=== PATIENT | male | born 1950 | race Caucasian/White ===

== ENCOUNTER → 2020-11-14 09:12 | Outpatient (BNVA) | payer OTHER, MEDICARE, SELFPAY | PROVIDERS: PCP Internal Medicine Endocrinology, Diabetes & Metabolism; Referring Provider Internal Medicine Endocrinology, Diabetes & Metabolism; Visit Provider Internal Medicine | DX: Z13.89 Encounter for screening for other disorder (principal) ==

== ENCOUNTER → 2021-02-11 09:18 | Outpatient (BNVA) | payer MEDICARE, OTHER, SELFPAY | PROVIDERS: PCP Internal Medicine Endocrinology, Diabetes & Metabolism; Visit Provider Internal Medicine | DX: Z13.89 Encounter for screening for other disorder (principal) | CPT/HCPCS: Q3014 ==

== ENCOUNTER 2021-02-28 09:32 | Outpatient (REF) | payer MEDICARE, SELFPAY ==
[2021-02-28 10:23] LABS: Hematocrit 32.9 % (42-52); Hemoglobin 11.4 g/dl (14.0-18.0)
[2021-02-28 11:21] LABS: Prostate Specific Antigen 0.79 ng/mL (<0.05-4.0); Vitamin D 25-OH Total 37.5 ng/mL (>30)
[2021-03-01 07:51] LABS: Follicle Stimulating Hormone 10.6 mIU/mL (1.6-8.0); Lutenizing Hormone 9.5 mIU/mL (1.6-15.2)
[2021-03-04 11:36] LABS: Testosterone, Free 25.2 pg/mL (35.0-155.0); Testosterone, Total 252 ng/dL (250-1100)
== END 2021-02-28 09:33 | disposition home or self-care (01) ==
LOC: HO.LAB 09:32
PROVIDERS: PCP Internal Medicine; Visit Provider Internal Medicine
DX: E23.0 Hypopituitarism (principal); E55.9 Vitamin D deficiency, unspecified; Z12.5 Encounter for screening for malignant neoplasm of prostate
CPT/HCPCS: 36415; 82306; 83001; 83002; 84153; 84402; 84403; 85014; 85018

== ENCOUNTER → 2021-04-03 08:11 | Outpatient (BNVA) | payer OTHER, MEDICARE, SELFPAY | PROVIDERS: PCP Internal Medicine; Visit Provider Internal Medicine ==

== ENCOUNTER 2024-04-11 00:03 | Inpatient (IN) | payer MEDICARE, BC, SELFPAY ==
[2024-04-11] VITALS (14 sets, daily range): BP systolic 120–170; BP diastolic 68–100; PULSE 58–70; RESP 9–18; TEMP 36.6–37.1; O2SAT 93–99; BMI 28.5
--- NOTE | ~2024-04-11 | XR_ITS ---
EXAMINATION: XR CHEST CLINICAL INFORMATION: Shortness of breath. COMPARISON: None available. TECHNIQUE: Frontal view of the chest was obtained. FINDINGS: The lung volumes are low limiting evaluation. The cardiomediastinal silhouette is within normal limits. There appears to be atelectatic change or scarring at the lung bases. The lungs are otherwise clear. The bony structures and soft tissues are unremarkable. XR/XR chest 1V IMPRESSION: Low lung volumes limiting evaluation. Bibasilar atelectasis or scarring. No other significant abnormality seen.
--- NOTE | ~2024-04-11 | CT_ITS ---
EXAMINATION: CTA NECK WITH CONTRAST (STROKE) CTA BRAIN WITH CONTRAST (STROKE) CLINICAL INFORMATION: Suspect acute stroke. Assess for major vessel occlusion. Please call report. COMPARISON: None available. TECHNIQUE: CTA of the head and neck was performed in the axial plane from the mediastinum to the skull vertex using 70 mL Omnipaque 350 intravenous contrast. Additional reformatted multiplanar images including maximum intensity projection MIP images are generated on the CT workstation. This CT examination was performed using dose optimization techniques as appropriate, variously including the following: *Automated exposure control *Adjustment of mA and/or kV according to patient size (this includes techniques or standardized protocols for targeted exams where dose is matched to indication/reason for exam; i.e. extremities or head) *Use of iterative reconstruction technique DLP: 1585 mGy-cm FINDINGS: The degree of stenosis determined by criteria similar to NASCET. Brain: The lateral, third and fourth ventricles are normally outlined. The cortical sulci and basal cisterns are normally outlined as well. There is no acute territorial defect, hemorrhage or midline shift. The extra-axial spaces are unremarkable. Calvarium/scalp: Intact. Maxillofacial sinuses and mastoids: There is partial bilateral mastoid opacification. The maxillofacial sinuses are clear. Chest CTA: There is mild atherosclerotic plaque of the aortic arch. A three-vessel branching pattern from the aortic arch is noted. There is no significant stenosis of the aortic arch vessels. Neck CTA: The common carotid artery is patent. There is mild plaque at the right carotid bifurcation. There is no significant narrowing of the internal or external carotid arteries. The vertebral vertebral arteries are codominant and patent. There is cervical degenerative change as well as postoperative change. Brain CTA: The intracranial internal carotid arteries, anterior and middle cerebral arteries are patent. The distal vertebral arteries, basilar artery and branches and the left posterior cerebral arteries are patent. The right posterior cerebral artery is not seen some apparent right-sided collaterals. There is no evidence for aneurysm. CT/CT angio head neck stroke IMPRESSION: 1. No acute territorial infarct or hemorrhage. 2. No evidence of aneurysm or vascular malformation. 3. The right posterior cerebral artery is not seen with some right-sided collateralization. Correlation needed
--- NOTE | ~2024-04-11 | CT_ITS ---
EXAMINATION: CT HEAD WITHOUT CONTRAST (STROKE PROTOCOL) CLINICAL INFORMATION: Stroke protocol. Left-sided weakness. COMPARISON: None available. TECHNIQUE: Contiguous axial imaging was performed from the skull base to vertex without intravenous administration of contrast. This CT examination was performed using dose optimization techniques as appropriate, variously including the following: *Automated exposure control *Adjustment of mA and/or kV according to patient size (this includes techniques or standardized protocols for targeted exams where dose is matched to indication/reason for exam; i.e. extremities or head) *Use of iterative reconstruction technique DLP: 784 mGy-cm FINDINGS: The lateral, third and fourth ventricles are normally outlined. The cortical sulci and basal cisterns are normally outlined as well. There is no acute territorial defect, hemorrhage or midline shift. The extra-axial spaces are unremarkable. Calvarium/scalp: Intact. Maxillofacial sinuses and mastoids: There is partial bilateral mastoid opacification. CT/CT head for stroke IMPRESSION: No acute intracranial pathology. This critical result was discussed with Daniela Gatica at 12:22 AM hours on 03/12/2024. It was ascertained that the content and urgency of the report was understood at the time of direct communication.
--- NOTE | ~2024-04-11 | MR_ITS ---
EXAMINATION: MR BRAIN WITHOUT CONTRAST CLINICAL INFORMATION: Speech changes. Left-sided weakness. COMPARISON: CTA head and neck from 04/11/2024. TECHNIQUE: MRI of the brain was obtained using routine sequences without contrast. FINDINGS: No focal restricted diffusion is demonstrated to suggest acute or subacute cerebral ischemia. No evidence of acute or chronic hemorrhagic products on heme-sensitive imaging. Scattered periventricular and deep white matter T2 FLAIR hyperintensities consistent with mild underlying microangiopathy. Proportional prominence of the ventricles and sulcal spaces without evidence of obstructive hydrocephalus. No abnormal mass effect. No midline shift. Normal appearance of the pituitary gland. Normal positioning of the cerebellar tonsils. Normal arterial and venous vascular flow voids are present. Normal, homogeneous marrow signal. Mild mucosal thickening of the paranasal sinuses. Small bilateral mastoid effusions. MR/MR head/brain wo con IMPRESSION: 1. No acute intracranial abnormalities. 2. Mild underlying microangiopathy and generalized cerebral volume loss.
--- NOTE | 2024-04-11 00:10 | ECG_ITS ---
Test Reason : STROKE?? Blood Pressure : / mmHG Vent. Rate : 067 BPM Atrial Rate : 000 BPM P-R Int : 000 ms QRS Dur : 100 ms QT Int : 396 ms P-R-T Axes : 000 050 040 degrees QTc Int : 418 ms Accelerated Junctional rhythm Abnormal ECG No previous ECGs available Referred By: Daniela Gatica Electronically Signed By:Theron Castelan
--- NOTE | 2024-04-11 00:12 | ED.NEUROSD ---
HPI - Neuro Symptoms/Deficit General Chief Complaint: Stroke Stated Complaint: stroke Time Seen by Provider: 04/11/24 00:09 History of Present Illness HPI Narrative: Patient is a 73-year-old male with a history of DVT. History of hypertension. History of large prostate history of glaucoma. Currently is on Eliquis for the previous history of DVT/PE. Took his medication this morning. Presented today with having sudden onset of slight change in speech. Slight facial droop on the left side. There is no change in patient's speech content. Feels like his speech is slurred. Question left-sided weakness noted by EMS and family. May have gotten better on arrival. Patient from home. Time: 00:34 Last Observed Normal: 23:30 Timing confirmed by: spouse and other (EMS) Location: speech and left face Related Data Home Medications ?Medication ?Instructions ?Recorded ?Confirmed lisinopril 40 mg tablet 40 mg PO DAILY 11/14/20 04/03/21 metoprolol succinate 50 mg 50 mg PO DAILY 11/14/20 04/03/21 tablet,extended release 24 hr nystatin 100,000 unit/mL oral PO 11/14/20 04/03/21 suspension pantoprazole 20 mg tablet,delayed 20 mg PO DAILY 11/14/20 04/03/21 release tamsulosin 0.4 mg capsule 0.4 mg PO DAILY 11/14/20 04/03/21 timolol maleate 0.5 % eye drops 1 drp ophthalmic (eye) QAM 11/14/20 04/03/21 travoprost 0.004 % eye drops drp ophthalmic (eye) 11/14/20 04/03/21 apixaban 5 mg tablet 5 mg PO BID 04/03/21 04/03/21 fluoride (sodium) 1.1 % dental appl PO DIRECTED 04/03/21 04/03/21 cream pravastatin 20 mg tablet 20 mg PO DAILY 04/03/21 04/03/21 Allergies Allergy/AdvReac Type Severity Reaction Status Date / Time seasonal allergies Allergy Unknown Unknown Uncoded 04/11/24 00:43 Review of Systems Review of Systems: Patient family complaining of slight change in speech left facial weakness has a history of DVT on Eliquis. [facility] Past Medical History Attestation statement: The following information was validated with the patient. Medical History Vitamin D deficiency DVT (deep venous thrombosis) Hypogonadotropic hypogonadism Surgical History Hx of appendectomy Hx of right inguinal hernia repair Family History Family History Mother No problems noted. Father No problems noted. Social History Social History Alcohol intake: former Smoked in Last 30 Days: No Use of substances other than those prescribed or required for medical reasons: Yes Substance Use Type: Marijuana Substance Use Frequency: Occasionally Physical Exam Vital Signs: Vital Signs: Last Vital Signs Temp 97.9 F 04/11/24 00:41 Pulse 67 04/11/24 00:41 Resp 14 04/11/24 00:41 BP 155/86 H 04/11/24 00:41 Pulse Ox 93 04/11/24 00:41 O2 Del Method Room Air 04/11/24 00:41 BMI result Body Mass Index 28.5 Appearance: Alert. Oriented X3. No acute distress. Eyes: Pupils equal, round and reactive to light. ENT: Pharynx normal. Neck: Normal inspection. Neck supple. No lymph nodes noted. No crepitus CVS: Normal heart rate and rhythm. Pulses normal. Normal S1 and S2 Respiratory: No respiratory distress. Breath sounds normal. No Wheezing. No rales Abdomen: Soft and nontender. No rigidity. No distention. good BS x4 Skin: Skin warm and dry. Normal skin color. Normal skin turgor. Extremities: No lower extremity edema. Neurovascular intact to all extremities. No Lacerations. No Rash Neuro: Oriented X 3. No motor deficit. No sensory deficit. Moving all extermities. No slurred speech Medications Administered Discontinued Medications Generic Name Dose Route Start Last Admin Trade Name Freq PRN Reason Stop Dose Admin Iohexol 70 ml 04/11/24 00:36 04/11/24 00:37 Iohexol 350 Mg/Ml 100 Ml Infus..Btl IV 04/11/24 00:37 70 ml ONCE ONE Administration Medical Decision Making Medical Decision Making MDM Narrative: Patient sugar is normal no evidence for hypoglycemia. Patient presented today with having a slight change in speech question left facial weakness that has somewhat improved on arrival. My exam showed an NIH stroke scale is 0. Patient CT scan of the head was done immediately per stroke protocol. I reviewed the finding with the radiologist. It was grossly negative. I reviewed the CT scan shows no evidence of bleeding. No evidence of mass. Patient is not a candidate for tPA as he had a history of being on Eliquis. Been taking his medication. CTA of the head and neck was nevertheless done. Patient had no history of strokes in the past. Differential Diagnosis Differential Diagnoses: The differential diagnosis associated with the presentation includes Hypoglycemia, intracranial mass, CVA, TIA Admission/Observation Consideration of admission/observation: Escalation of care including admission/observation considered Consult Healthcare Provider Management of the patient was discussed with: Hospitalist (Will require admission) and Chief Jailer (Case discussed with radiologist) Lab Data MDM Lab Attestation statement: I reviewed the patient's lab results. 04/11/24 00:38 04/11/24 00:38 Labs: Lab Results 04/11/24 04/11/24 Range/Units 00:07 00:38 WBC 8.3 (4.8-10.8) X10*3/uL RBC 3.82 L (4.60-5.80) X10*6/uL Hgb 12.0 L (14.0-18.0) g/dl Hct 34.5 L (42.0-52.0) % MCV 90.3 (80.0-98.0) fL MCH 31.4 (27.0-33.0) pg MCHC 34.8 (31.0-36.0) g/dl RDW 13.2 (11.0-16.0) % Plt Count 189 (160-400) X10*3/uL MPV 8.8 L (9.4-12.4) fL Immature Gran % (Auto) 0.5 H (0.0-0.4) % Neut % (Auto) 64.0 (45-73) % Lymph % (Auto) 23.1 (20-40) % [place] % (Auto) 9.5 (2-11) % Eos % (Auto) 2.2 (0-4) % Baso % (Auto) 0.7 (0-2) % Lymph # (Auto) 1.9 (1.2-4.9) X10*3/uL [place] # (Auto) 0.8 (0.1-1.2) X10*3/uL Eos # (Auto) 0.2 (0.0-0.4) X10*3/uL Baso # (Auto) 0.1 (0.0-0.2) X10*3/uL Abs Immat Gran (auto) 0.04 H (0.00-0.03) X10*3/uL Absolute Neuts (auto) 5.3 (2.0-8.3) x10*3/uL Absolute Nucleated RBC 0.000 (0.0-0.012) X10*3/uL Nucleated RBC % (auto) 0.0 (0.0-0.2) /100WBC PT 14.8 H (11.1-13.3) SEC INR 1.2 H (0.9-1.1) APTT 32.3 (26.0-36.8) SEC Sodium 129 L (135-145) mmol/L Potassium 4.2 (3.3-5.1) mmol/L Chloride 93 L (96-108) mmol/L Carbon Dioxide 28 (22-29) mmol/L Anion Gap 12 (12-20) BUN 13 (9-16) mg/dL Creatinine 1.09 (0.5-1.4) mg/dL Estim Creat Clear Calc 63.9 Estimated GFR > 60 POC Glucose 84 (60-115) mg/dL Random Glucose 86 (60-115) mg/dL Calcium 8.9 (8.4-10.2) mg/dL Phosphorus 3.7 (2.7-4.5) mg/dL Magnesium 2.1 (1.6-2.6) mg/dL Total Creatine Kinase 102 (38-174) U/L Troponin I High Sens < 2.7 (<3.5-35.0) ng/L TSH 1.00 (0.32-4.0) uIU/mL Ethyl Alcohol < 10 mg/dL Independent Interpretation I performed an independent interpretation of an: EKG (My interpretation of patient's EKG showed a sinus rhythm heart rate is 70 VT QRS QTC normal no acute ST segment elevation noted.) and CT Scan (CT scan of the head was grossly negative) Radiology Impression Discussion of test interpretation with radiology: I have reviewed the radiologist's reading. Independent Historian Clinical information obtained from an independent historian. History obtained from or confirmed by: EMS External Record Review External record reviewed: Inpatient record NIH Stroke Scale Internal: Initial- Upon Arrival Time: 00:35 Level of Consciousness: Alert Level of Consciousness Questions: Answers both questions correctly Level of Consciousness Commands: Performs both tasks correctly Best Gaze: Normal Visual: No visual loss Facial Palsy: Normal Motor Arm (Right): No drift Motor Arm (Left): No drift Motor Leg (Right): No drift Motor Leg (Left): No drift Limb Ataxia: Absent Sensory: Normal Best Language: No aphasia Dysarthia: Normal Extinction and Inattention: No abnormality Score: 0 Critical Care Time Critical Care Time Critical Care Time: Yes Total Critical Care Time: 40 Attestation: I have personally provided 40 minutes of critical care time exclusive of time spent on separately billable procedures. ?Time includes review of lab data, radiology results, discussion with consultants, and monitoring for potential decompensation. ?Interventions were performed as documented above Discharge Plan Discharge Clinical Impression: Cerebrovascular accident Patient Disposition: Admitted As Inpatient Prescriptions: No Action lisinopril 40 mg tablet 40 mg PO DAILY travoprost 0.004 % drops ophthalmic (eye) nystatin 100,000 unit/mL suspension PO metoprolol succinate 50 mg tablet extended release 24 hr 50 mg PO DAILY tamsulosin 0.4 mg capsule 0.4 mg PO DAILY pantoprazole 20 mg tablet,delayed release (DR/EC) 20 mg PO DAILY timolol maleate 0.5 % drops 1 drp ophthalmic (eye) QAM pravastatin 20 mg tablet 20 mg PO DAILY Eliquis 5 mg tablet 5 mg PO BID fluoride (sodium) 1.1 % cream PO DIRECTED Print Language: Malay
[2024-04-11 00:15] LABS: Glucose, Whole Blood 84 mg/dL (60-115)
--- NOTE | 2024-04-11 00:19 | MHC.EDTECH ---
PT INR unable to perform. No QC available. Communicated with the lab and they stated not having any QC material. Charge nurse aware.
[2024-04-11] MEDS: iohexoL 350 MG/ML 100 ML INFUS..BTL 70 ML IV (00:37)
[2024-04-11 00:43] LABS: MANUAL DIFF FLAG NO
[2024-04-11 00:44] LABS: Basophils Absolute Auto 0.1 X10*3/uL (0.0-0.2); Basophils Percent Auto 0.7 % (0-2); Eosinophils Absolute Auto 0.2 X10*3/uL (0.0-0.4); Eosinophils Percent Auto 2.2 % (0-4); Hematocrit 34.5 % (42.0-52.0); Imm Gran Abs Auto 0.04 X10*3/uL (0.00-0.03); Imm Gran Pct Auto 0.5 % (0.0-0.4); Lymphocytes Absolute Auto 1.9 X10*3/uL (1.2-4.9); Lymphocytes Percent Auto 23.1 % (20-40); Mean Corpuscular HGB Conc 34.8 g/dl (31.0-36.0); Mean Corpuscular Hemoglobin 31.4 pg (27.0-33.0); Mean Corpuscular Volume 90.3 fL (80.0-98.0); Mean Platelet Volume 8.8 fL (9.4-12.4); Monocytes Absolute Auto 0.8 X10*3/uL (0.1-1.2); Monocytes Percent Auto 9.5 % (2-11); Neutrophils Absolute Auto 5.3 x10*3/uL (2.0-8.3); Platelet Count 189 X10*3/uL (160-400); Red Blood Count 3.82 X10*6/uL (4.60-5.80); Red Cell Distribution Width 13.2 % (11.0-16.0); White Blood Count 8.3 X10*3/uL (4.8-10.8)
[2024-04-11 00:50] LABS: INTERNATIONAL NORM RATIO 1.2 (0.9-1.1); Prothrombin Time 14.8 SEC (11.1-13.3)
[2024-04-11 00:52] LABS: Partial Thromboplastin Time 32.3 SEC (26.0-36.8)
[2024-04-11 00:53] LABS: Stroke Lab Use COMPLETE
[2024-04-11 01:06] LABS: Troponin-I High Sensitivity < 2.7 ng/L (<3.5-35.0)
[2024-04-11 01:07] LABS: Anion Gap 12 (12-20); Blood Urea Nitrogen 13 mg/dL (9-16); Calcium 8.9 mg/dL (8.4-10.2); Carbon Dioxide 28 mmol/L (22-29); Chloride 93 mmol/L (96-108); Creatinine Clr Calc Pharmacy 63.9; Estimated Glomerular Filt Rate > 60; Ethanol < 10 mg/dL; Glucose Random 86 mg/dL (60-115); Magnesium 2.1 mg/dL (1.6-2.6); Phosphorus 3.7 mg/dL (2.7-4.5); Potassium 4.2 mmol/L (3.3-5.1); Sodium 129 mmol/L (135-145)
[2024-04-11 01:56] LABS: Appearance Urine Clear; Color Urine Yellow; Glucose Urine UA Negative (Negative); Leukocyte Esterase Urine Trace (Negative); Nitrite Urine Negative (Negative); Specific Gravity - Urine 1.015 (1.005-1.025); UMIC TRIGGER UACC YES; Urine Blood Negative (Negative); Urine Ketones Negative (Negative); Urine Protein Negative (Neg-Trace)
[2024-04-11 01:58] LABS: Bacteria Urine None Seen (None Seen); Hyaline Casts Urine 0-2 /LPF (0-2); RBC Urine 0-2 /HPF (0-2); Squamous Epithelial Cell Urine 0-2 /HPF (0-2); WBC Urine 0-5 /HPF (0-5)
--- NOTE | 2024-04-11 02:17 | PC.NURSE ---
pt sating well with 2lpm via NC. Per hospitalist request, O2 removed, pt resting with eyes closed, respirations even and unlabored. Hospitalist unsure of his sleepiness secondary to retention; new orders for CPAP, venous blood gas obtained. RT made aware
--- NOTE | 2024-04-11 02:44 | PM.IMHP ---
History of Present Illness Date of Service: 04/11/24 Attending physician on admission: Richa Wu Chief Complaint: Generalized weakness Herb Olivia is a 73 years old man with past medical history significant for DVT on Eliquis, hypogonadism hyperlipidemia, glaucoma, depression and GERD was brought to the ED via EMS after he started to experience generalized weakness and speech difficulty. Patient is currently quite lethargic and will fall asleep during the interview. He denied any headache, acute visual disturbances, nausea, dizziness or vomiting. Denied fever or chills. He does take amitriptyline last night. According to ED triage notes, patient's reports new slurred speech. Patient has no history of CVA or TIAs. No history of diabetes, kidney, atrial fibrillation or heart disease. Patient is a former tobacco smoker. Denies alcohol abuse or illicit drug use. In the ED, he was found to have stable vital signs. Blood pressure was initially 155/86. Most recent BP is 129/79. Blood workup including CBC and CMP are remarkable for anemia of 12 which is at baseline and hyponatremia of 129. LFTs and renal function are normal. Troponin is negative. Urinalysis is basically normal. ETOH show level is < 10. CXR showed low lung volumes, bibasilar atelectasis or scaring without any other significant abnormality. Head CT scan without contrast showed no acute intracranial abnormality. Head and neck CTA showed no acute territorial infarction, hemorrhage, aneurysm or vascular malformation. The right posterior cerebral artery is not seen with some right-sided collateralization. ECG showed normal sinus rhythm to al. ED tx: None. Review of Systems Review of Systems: Limited due to mental status [facility] Medical History (Updated 04/11/24 @ 03:47 by Richa Wu MD) Obstructive sleep apnea Hyperlipidemia Essential hypertension Vitamin D deficiency DVT (deep venous thrombosis) Hypogonadotropic hypogonadism Family History Mother No problems noted. Father No problems noted. Surgical History Hx of appendectomy Hx of right inguinal hernia repair Social History Alcohol intake: former Smoked in Last 30 Days: No Use of substances other than those prescribed or required for medical reasons: Yes Substance Use Type: Marijuana Substance Use Frequency: Occasionally Advance Directives: No Advance Directives Information Provided: Yes Meds Allergies Allergy/AdvReac Type Severity Reaction Status Date / Time seasonal allergies Allergy Unknown Unknown Uncoded 04/11/24 00:43 Active Medications: Current Medications Sodium Chloride (Ns) 1,000 mls @ 75 mls/hr IVCONT .[id number] PATRICIA Stop: 04/11/24 07:29 Sodium Chloride (0.9 % Sodium Chloride Flush 3 Ml Syringe) 3 ml IVFLUSH QSHIFT [facility] Home Medications ?Medication ?Instructions ?Recorded ?Confirmed ?Last Taken ?Type lisinopril 40 mg tablet 40 mg PO DAILY 11/14/20 04/03/21 Unknown History metoprolol succinate 50 mg 50 mg PO DAILY 11/14/20 04/03/21 Unknown History tablet,extended release 24 hr nystatin 100,000 unit/mL oral PO 11/14/20 04/03/21 Unknown History suspension pantoprazole 20 mg tablet,delayed 20 mg PO DAILY 11/14/20 04/03/21 Unknown History release tamsulosin 0.4 mg capsule 0.4 mg PO DAILY 11/14/20 04/03/21 Unknown History timolol maleate 0.5 % eye drops 1 drp ophthalmic (eye) QAM 11/14/20 04/03/21 Unknown History travoprost 0.004 % eye drops drp ophthalmic (eye) 11/14/20 04/03/21 Unknown History apixaban 5 mg tablet 5 mg PO BID 04/03/21 04/03/21 Unknown History fluoride (sodium) 1.1 % dental appl PO DIRECTED 04/03/21 04/03/21 Unknown History cream pravastatin 20 mg tablet 20 mg PO DAILY 04/03/21 04/03/21 Unknown History Physical Exam Vital Signs and Narrative: Vital Signs: Last Vital Signs Temp 97.9 F 04/11/24 00:41 Pulse 67 04/11/24 00:41 Resp 14 04/11/24 00:41 BP 155/86 H 04/11/24 00:41 Pulse Ox 93 04/11/24 00:41 O2 Del Method Room Air 04/11/24 00:41 BMI result Body Mass Index 28.5 Constitutional - Lethargic. Acutely ill-appearance. Afebrile. HEENT - Atraumatic head. PERRL. Injected sclerae. Dry oral mucosa. Heart - S1S2, RRR. No murmur. Lungs - Normal lung expansion, Normal respiratory effort, No respiratory distress, CTA bilaterally Abdomen - NT / ND; +BS; No rebound or guarding Extremities - no calf tenderness bilaterally, no swelling Musculoskeletal - Normal inspection, normal ROM Skin - Warm/Dry Neurological - Lethargic, oriented x3. Answers simple questions. Follows simple commands. CN III-XII intact, 5/5 strength BUE and BLE. Slurred speech. Psychological - No agitation. Results Labs 04/11/24 00:38 04/11/24 00:38 Labs: Laboratory Results - last 24 hr 04/11/24 04/11/24 04/11/24 00:07 00:38 01:49 MCV 90.3 MCH 31.4 MCHC 34.8 RDW 13.2 Plt Count 189 MPV 8.8 L Immature Gran % (Auto) 0.5 H Neut % (Auto) 64.0 Lymph % (Auto) 23.1 [place] % (Auto) 9.5 Eos % (Auto) 2.2 Baso % (Auto) 0.7 Lymph # (Auto) 1.9 [place] # (Auto) 0.8 Eos # (Auto) 0.2 Baso # (Auto) 0.1 Abs Immat Gran (auto) 0.04 H Absolute Neuts (auto) 5.3 Absolute Nucleated RBC 0.000 Nucleated RBC % (auto) 0.0 PT 14.8 H INR 1.2 H APTT 32.3 Anion Gap 12 Estim Creat Clear Calc 63.9 Estimated GFR > 60 POC Glucose 84 Random Glucose 86 Calcium 8.9 Phosphorus 3.7 Magnesium 2.1 Total Creatine Kinase 102 Troponin I High Sens < 2.7 TSH 1.00 Urine Color Yellow Urine Appearance Clear Urine pH 7.0 Ur Specific [place] 1.015 Urine Protein Negative Urine Glucose (UA) Negative Urine Ketones Negative Urine Blood Negative Urine Nitrite Negative Ur Leukocyte Esterase Trace H Urine RBC 0-2 Urine WBC 0-5 Ur Squamous Epith Cells 0-2 Urine Bacteria None Seen Hyaline Casts 0-2 Ethyl Alcohol < 10 ECG Attestation: I personally reviewed and interpreted this ECG as follows: (It looks normal sinus rhythm to me without significant ischemic changes.) Imaging Radiologist's Impressions: Impressions Head CT 04/11/24 00:17 IMPRESSION: No acute intracranial pathology. This critical result was discussed with Daniela Skelton Gatica at 12:22 AM hours on 03/12/2024. It was ascertained that the content and urgency of the report was understood at the time of direct communication. Head/Neck CTA 04/11/24 00:35 IMPRESSION: 1. No acute territorial infarct or hemorrhage. 2. No evidence of aneurysm or vascular malformation. 3. The right posterior cerebral artery is not seen with some right-sided collateralization. Correlation needed Chest X-Ray 04/11/24 00:36 IMPRESSION: Low lung volumes limiting evaluation. Bibasilar atelectasis or scarring. No other significant abnormality seen. Assessment and Plan (1) Slurred speech: Status: Acute (2) Acute encephalopathy: Status: Acute (3) Essential hypertension: Status: Acute (4) Hyperlipidemia: Qualifiers: Hyperlipidemia type: unspecified Qualified Code(s): E78.5 - Hyperlipidemia, unspecified Status: Acute (5) DVT (deep venous thrombosis): Qualifiers: DVT location: lower extremity Affected thrombotic vein of extremity: unspecified vein of extremity Chronicity: unspecified Laterality: unspecified laterality Qualified Code(s): I82.409 - Acute embolism and thrombosis of unspecified deep veins of unspecified lower extremity Status: Acute (6) Hyponatremia: Status: Acute (7) Obstructive sleep apnea: Status: Acute Plan Herb Olivia is a 73 y/o man admitted with: Slurred speech. ? TIA/stroke. I do not appreciate any gross focal weakness or facial droop. ETOH level <10. Admit to hospitalist service. Neuro checks. Aspirin 324 mg PO now. Continue Eliquis. High-intensity statin. GENARO with bubble study. Brain MRI. Neurology consult. Acute encephalopathy. Patient seems very lethargic. He took his amitriptyline last night. Discontinue nasal cannula and start nocturnal CPAP. Check urine drug screen. Hyponatremia. Taking hydrochlorothiazide? IV fluids. Continue to monitor Na+ level. Obstructive sleep apnea. Nocturnal CPAP. Essential hypertension. Continue home meds. Hyperlipidemia. Continue statin. Glaucoma. Continue home eye drops. DVT prophylaxis: Eliquis Code status: Full Patient will need hospitalization for at least 2 midnights for altered mental status, weakness and speech difficulty evaluation and management. Patient will need close monitoring of vital signs and neurological status. Quality Stroke Does the patient have a stroke diagnosis?: No VTE Prior VTE?: No VTE Risk Level:: Medical - moderate - high VTE Device Contraindication: Treatment Not Indicated VTE Drug Contraindication: N/A - Med Ordered
[2024-04-11 02:50] LABS: Venous Blood Gas Refer to POC result
--- NOTE | 2024-04-11 03:00 | PC.NURSE ---
reports new slurred speech and left sided facial droop. LWKT 10:30pm. Pt A&Ox3, denies any pain, reports recent BP med change. On Eliquis for hx of DVTs. PERRL, no facial drop noted, Pt able to follow commands, no extremity ataxia noted. Pt able to stand at edge of bed for urinal use. Swallow screen done, Pt tolerated well. Meds given per JAN. Pt reports using Cpap at night, reparatory therapist brought down cpap machine.
[2024-04-11 03:30] LABS: VBG HCO3 29 mmol/L (22-26); VBG pCO2 50 mmHg; VBG pH 7.36 (7.32-7.43); VBG pO2 58 mmHg
[2024-04-11] MEDS: 0.9 % Sodium Chloride 1,000 ML 75 ML IVCONT (03:32)
[2024-04-11] MEDS: Aspirin 81 MG TAB.CHEW 324 MG PO (03:37)
--- NOTE | 2024-04-11 03:50 | PC.NURSE ---
Med rec done, Pt able to verify home meds.
[2024-04-11 04:12] LABS: Amphetamine Screen Urine Not Detected (Not Detect); Barbiturates, Urine Not Detected (Not Detect); Benzodiazepines Screen Urine Not Detected (Not Detect); Buprenorphine Scr Not Detected (Not Detect); Cannabinoid Screen Urine POSITIVE (Not Detect); Cocaine Screen Urine Not Detected (Not Detect); Fentanyl, urine Not Detected (Not Detect); Methadone Screen, Urine Not Detected (Not Detect); Opiate Screen Urine Not Detected (Not Detect); Oxycodone Screen Urine Not Detected (Not Detect); Phencyclidine Screen Urine Not Detected (Not Detect)
[2024-04-11 06:18] LABS: Hematocrit 34.6 % (42.0-52.0); Mean Corpuscular HGB Conc 34.7 g/dl (31.0-36.0); Mean Corpuscular Hemoglobin 31.5 pg (27.0-33.0); Mean Corpuscular Volume 90.8 fL (80.0-98.0); Mean Platelet Volume 9.7 fL (9.4-12.4); Platelet Count 205 X10*3/uL (160-400); Red Blood Count 3.81 X10*6/uL (4.60-5.80)
[2024-04-11 06:23] LABS: Anion Gap 13 (12-20); Blood Urea Nitrogen 12 mg/dL (9-16); Calcium 9.3 mg/dL (8.4-10.2); Carbon Dioxide 28 mmol/L (22-29); Chloride 97 mmol/L (96-108); Creatinine Clr Calc Pharmacy 74.9; Estimated Glomerular Filt Rate > 60; Glucose Random 86 mg/dL (60-115); Potassium 4.3 mmol/L (3.3-5.1); Sodium 134 mmol/L (135-145)
--- NOTE | 2024-04-11 07:00 | CA_ITS ---
Transthoracic Echocardiogram Patient (Last, First, Middle): Herb Olivia J Gender: Male Date of : 1950 Age: 73 Procedure Date: 04/11/2024 Procedure Type: Transthoracic Echocardiogram Location: ER Height: 170.18 cm Weight: 82.56 kg BSA: 1.94 m2 Heart Rate: bpm BP: 130 / 68 mmHg Senior Business Objects Developer: Referring MD: Richa Wu MD Symptoms: Slurred speech Study Quality: Adequate ECG Rhythm: Sinus Conclusions: - Normal left ventricular size and systolic function. There is mildly increased left ventricular wall thickness. The visually estimated ejection fraction is between 55-60%. - E/E prime ratio is between 8 and 15 consistent with indeterminate filling pressures. - Normal right ventricular cavity size and systolic function. - There is mild dilatation of the ascending aorta measuring 4.00 cm. Findings Left Ventricle Normal left ventricular size and systolic function. There is mildly increased left ventricular wall thickness. The visually estimated ejection fraction is between 55-60%. There is no evidence of regional wall motion abnormalities. Abnormal diastolic function is noted. Spectral Doppler is indicative of a pseudonormal filling pattern. E/E prime ratio is between 8 and 15 consistent with indeterminate filling pressures. Right Ventricle Normal right ventricular cavity size and systolic function. Atria The left atrium is normal in size. Aortic Valve The aortic valve structure and function is likely normal. There is no aortic valve stenosis. There is trace (trivial) aortic valve regurgitation. Mitral Valve The mitral valve appears normal. There is no mitral valve regurgitation. There is no mitral valve stenosis. Pulmonic Valve The pulmonic valve is likely normal. Tricuspid Valve Normal tricuspid valve structure. There is no tricuspid valve regurgitation. Normal right atrial pressure. There is no evidence of pulmonary hypertension. Great Vessels There is mild dilatation of the ascending aorta measuring 4.00 cm. The visualized portions of the pulmonary artery and branches are normal. Venous The inferior vena cava is normal in size and collapses greater than 50% with inspiration. Pericardium/Pleural There is no evidence of pericardial effusion. Prior Study Comparison No prior study available for comparison. Measurements 2D Linear Measurements IVSd: 1.27 0.6-0.9/0.6-1.0 cm LVIDd: 3.73 3.9-5.3/4.2-5.9 cm LVIDd Index: 1.92 2.4-3.2/2.2-3.1 cm/m2 LVIDs: 2.45 2.0-3.6 cm LVPWd: 1.36 0.7-1.1 cm Ao Root: 3.80 2.1-3.5 cm LA Diam: 3.80 2.7-3.8/3.0-4.0 cm LAIDs Index: 1.96 1.5-2.3 cm/m2 LV Mass: 213.58 67-162/88-224 g LV Mass Index: 110.09 43-95/49-115 g/m2 LVOT Diam: 2.10 3.0+(-)1.3 cm 2D Systolic Function EF 4C: 60.60 >55% EF 2C: 63.60 >55% EF BiP: 61.80 >55% Mitral Valve MV Pk E: 0.86 MV PK A: 0.89 MV Decel Time: 199.00 E/A: 1.00 E'Lateral: 5.87 E'Medial: 7.83 E/E' Med: 10.90 E/E' Lat: 14.60 PHT: 58.00 MVA PHT: 3.79 Decel [place]: 4.31 Aortic Valve AoV Pk Agustín: 1.29 AoV Mn Agustín: 0.81 AoV VTI: 0.30 AoV Pk Grad: 7.00 Aov Mn Grad: 3.00 SYLVAIN Cont.VTI: 3.22 LVOT LVOT Pk Agustín: 1.30 LVOT Mn Agustín: 0.82 LVOT VTI: 0.28 LVOT Pk Grad: 7.00 LVOT Mn Grad: 3.00 LVOT Diam: 2.10 LVOT Area: 3.46 Diastolic Function MV Pk E: 0.86 MV Pk A: 0.89 E/A: 1.00 E'Medial: 7.83 E/E' Med: 10.90 E' Laterial: 5.87 E/E' Lat: 14.60 Right Ventricle TAPSE (mm): 28.00 TVS' Agustín: 9.00 Tricuspid Valve TR Pk Agustín: 1.87 TR Pk Grad: 14.00 RA Press: 3.00 RVSP: 17.00 Great Vessels Aorta Ao Root-2D: 3.80 2.0-3.7 cm Ao Asc: 4.00 2.1-3.4 cm Pulmonary Valve PV Pk Agustín: 0.84 Peak PV Grad: 3.00 Updated in Other Vendor System with Status of Final Theron Castelan MD electronically signed on 04/11/2024 2:43:00 PM with status of Final
--- NOTE | 2024-04-11 07:45 | PC.NURSE ---
This RN assumed care. Pt awake, took off his own night CPAP and sat up in bed. Alert and oriented, breathing even and unlabored. VSS. Denies any weakness, neg for slurred speech or facial droop. No pain.
--- NOTE | 2024-04-11 08:40 | PC.NURSE ---
Pt taken to MRI. Meds are unverified by pharmacy at this time.
--- NOTE | 2024-04-11 09:04 | MHC.CM.PN ---
Patient is documented to be Lethargic/falling to sleep during conversation; CM spoke with Tiny @ [phone] and addressed IMM with her (original will be mailed certified letter to Tiny and a copy will be placed on the chart). Patient lives in a house with his and Son and he required no services nor DME [employer]. Patient may benefit from a PT Eval to assist with disposition. CM has initiated and will follow for dc planning. Patient has no formal HCP and will need this addressed when mental status improves. PCP is Dr. Ld Arenas.
--- NOTE | 2024-04-11 10:19 | PC.NURSE ---
Addendum entered by Rox Veliz 04/11/24 10:46: Pharmacy contacted about unverified meds. Waiting for update. Original Note: Echo at bedside, meds are still unverified by pharmacy.
--- NOTE | 2024-04-11 10:42 | PC.NURSE ---
Speech at bedside doing exam.
--- NOTE | 2024-04-11 11:34 | PM.NEUROCN ---
History of Present Illness Data of Consult Service Date: 04/11/24 Primary Care Provider: Unknown Physician HPI Reason for consult: Slurred speech 73 years old man taking anticoagulation for DVT came to hospital with new symptoms of slurred speech in generalized weakness. He said that it started yesterday and now he was feeling better. There was no complaint of double vision or loss of vision. There was no complaint of headache. There was no recent cold or flu-like illness or trauma. Review of Systems Review of Systems: No recent flu or trauma PMFSH Past Medical History Medical History Obstructive sleep apnea Hyperlipidemia Essential hypertension Vitamin D deficiency DVT (deep venous thrombosis) Hypogonadotropic hypogonadism Family History Family History Mother No problems noted. Father No problems noted. Surgical History Surgical History Hx of appendectomy Hx of right inguinal hernia repair Social History Social History Alcohol intake: former Patient Tobacco Use Status: Former Tobacco user Smoked in Last 30 Days: No Use of substances other than those prescribed or required for medical reasons: Yes Substance Use Type: Marijuana Substance Use Frequency: Occasionally Advance Directives: No Advance Directives Information Provided: Yes Nutrition Risks: No Nutritional Risk service: Yes Meds Allergies Allergy/AdvReac Type Severity Reaction Status Date / Time seasonal allergies Allergy Unknown Unknown Uncoded 04/11/24 00:43 Active Medications: Current Medications Amitriptyline HCl (Amitriptyline Hcl 50 Mg Tablet) 100 mg PO BEDTIME [facility] Apixaban (Apixaban 5 Mg Tablet) 5 mg PO BID [facility] Lisinopril (Lisinopril 40 Mg Tablet) 40 mg PO DAILY [facility]; Protocol Metoprolol Succinate (Metoprolol Succinate Er 50 Mg Tab.Er.24h) 50 mg PO DAILY [facility]; Protocol Non-Formulary Medication (Pantoprazole) 20 mg PO DAILY [facility] Pravastatin Sodium (Pravastatin Sodium 20 Mg Tablet) 20 mg PO DAILY [facility] Sodium Chloride (0.9 % Sodium Chloride Flush 3 Ml Syringe) 3 ml IVFLUSH QSHIFT [facility] Last Admin: 04/11/24 07:16 Dose: Not Given Tamsulosin HCl (Tamsulosin Hcl 0.4 Mg Capsule) 0.4 mg PO DAILY [facility] Timolol Maleate (Timolol Maleate 0.5 % Oph [place] 5 Ml Drbtl) 1 [facility] [place] ?Medication ?Instructions ?Recorded ?Confirmed ?Last Taken ?Type lisinopril 40 mg tablet 40 mg PO DAILY 11/14/20 04/11/24 Unknown History metoprolol succinate 50 mg 50 mg PO DAILY 11/14/20 04/11/24 Unknown History tablet,extended release 24 hr tamsulosin 0.4 mg capsule 0.4 mg PO BEDTIME 11/14/20 04/11/24 Unknown History timolol maleate 0.5 % eye drops 1 drp ophthalmic (eye) QAM 11/14/20 04/11/24 Unknown History travoprost 0.004 % eye drops 1 drp ophthalmic-Right BEDTIME 11/14/20 04/11/24 Unknown History (Travatan Z) pravastatin 20 mg tablet 20 mg PO DAILY 04/03/21 04/11/24 Unknown History amitriptyline 100 mg tablet 100 mg PO BEDTIME 04/11/24 04/11/24 Unknown History amlodipine 2.5 mg tablet 2.5 mg PO DAILY 04/11/24 04/11/24 Unknown History apixaban 2.5 mg tablet (Eliquis) 2.5 mg PO BID 04/11/24 04/11/24 Unknown History aripiprazole 10 mg tablet 10 mg PO BEDTIME 04/11/24 04/11/24 Unknown History aripiprazole 2 mg tablet 4 mg PO QAM 04/11/24 04/11/24 Unknown History cetirizine 10 mg tablet (Zyrtec) 10 mg PO DAILY 04/11/24 04/11/24 Unknown History pantoprazole 40 mg tablet,delayed 40 mg PO QAM 04/11/24 04/11/24 Unknown History release Physical Exam Vital Signs: Vital Signs: Last Vital Signs Temp 98.2 F 04/11/24 06:22 Pulse 65 04/11/24 09:45 Resp 15 04/11/24 09:45 BP 129/71 04/11/24 09:45 Pulse Ox 99 04/11/24 09:45 O2 Del Method Room Air 04/11/24 09:45 BMI result Body Mass Index 28.5 Neuro: Other: He is alert and awake with normal spontaneity of speech fluency comprehension and affect. Speech is slightly slurred. There is mild bilateral ptosis. Otherwise face is symmetrical. No focal weakness. Deep tendon reflexes are trace to absent with flexor plantars. Results Labs 04/11/24 05:45 04/11/24 05:45 Labs: Short CBC 04/11/24 04/11/24 Range/Units 00:38 05:45 WBC 8.3 9.0 (4.8-10.8) X10*3/uL Hgb 12.0 L 12.0 L (14.0-18.0) g/dl Hct 34.5 L 34.6 L (42.0-52.0) % Plt Count 189 205 (160-400) X10*3/uL BMP 04/11/24 04/11/24 00:38 05:45 Sodium 129 L 134 L Potassium 4.2 4.3 Chloride 93 L 97 Carbon Dioxide 28 28 BUN 13 12 Creatinine 1.09 0.93 Calcium 8.9 9.3 Cardiac Enzymes 04/11/24 Range/Units 00:38 Total Creatine Kinase 102 (38-174) U/L Urine 04/11/24 Range/Units 01:49 Urine Color Yellow Urine Appearance Clear Urine pH 7.0 (5.0-9.0) Ur Specific [place] 1.015 (1.005-1.025) Urine Protein Negative (Neg-Trace) mg/dL Urine Glucose (UA) Negative (Negative) mg/dL Noncontrast MRI of brain did not reveal any significant pathology. Assessment and Plan (1) Slurred speech: Status: Acute 73 years old man with new complain of slurred speech and generalized weakness. On examination his speech seems still mildly slurred though he stated that this was is normal speech in his examination suggested mild ptosis. This could be initial presentation of myasthenia gravis. My recommendation is to order acetylcholine receptor blocking, binding, and modulating antibody titers. Procedures Date of Service Date of Service: 04/11/24
[2024-04-11] MEDS: Omeprazole 20 MG CAPSULE.DR PO (12:06)
[2024-04-11] MEDS: lisinopriL 40 MG TABLET PO (12:06)
[2024-04-11] MEDS: Metoprolol Succinate ER 50 MG TAB.ER.24H PO (12:07)
--- NOTE | 2024-04-11 12:13 | PC.NURSE ---
Pharmacy contacted again about missing meds and unverified meds. Reported they are still working on his med rec
--- NOTE | 2024-04-11 12:38 | PM.EVENT ---
Event Note Date of Service: 04/11/24 Event Note: The patient was admitted this morning. He was seen and examined, and his labs and vitals were reviewed. His medications were reconciled, and his case was discussed with a neurologist. He was admitted with weakness that appears to have improved, with no acute stroke evident on CT or MRI. There is a suspicion of myasthenia gravis, so we will begin the workup with acetylcholine receptor blocking, binding, and modulating antibody titers. Time Spent With Patient Time: Total time managing care of this patient today ____ minutes.
[2024-04-11] MEDS: Pravastatin Sodium 20 MG TABLET PO (13:18)
[2024-04-11] MEDS: timoloL maleate 0.5 % Oph Sol 5 ML DRBTL 1 DROP EYE-BOTH (13:19)
[2024-04-11] MEDS: ARIPiprazole 2 MG TABLET 4 MG PO (13:30)
--- NOTE | 2024-04-11 16:17 | PM.DS ---
DS: Providers Provider Date of Service: 04/11/24 Date of admission: 04/11/24 02:40 Primary care physician: Unknown Physician Consults: 04/11/24 02:43 Consult to Neurology Routine Consulting Provider: [facility] Reason for consultation: Speech changes, generalized weakness Has provider been notified: No DS: Diagnosis Discharge Diagnosis (1) Slurred speech: Status: Resolved DS: Summary Hospital Course Hospital Course: admission hpi Chief Complaint: Generalized weakness Herb Olivia is a 73 years old man with past medical history significant for DVT on Eliquis, hypogonadism hyperlipidemia, glaucoma, depression and GERD was brought to the ED via EMS after he started to experience generalized weakness and speech difficulty. Patient is currently quite lethargic and will fall asleep during the interview. He denied any headache, acute visual disturbances, nausea, dizziness or vomiting. Denied fever or chills. He does take amitriptyline last night. According to ED triage notes, patient's reports new slurred speech. Patient has no history of CVA or TIAs. No history of diabetes, kidney, atrial fibrillation or heart disease. Patient is a former tobacco smoker. Denies alcohol abuse or illicit drug use. In the ED, he was found to have stable vital signs. Blood pressure was initially 155/86. Most recent BP is 129/79. Blood workup including CBC and CMP are remarkable for anemia of 12 which is at baseline and hyponatremia of 129. LFTs and renal function are normal. Troponin is negative. Urinalysis is basically normal. ETOH show level is < 10. CXR showed low lung volumes, bibasilar atelectasis or scaring without any other significant abnormality. Head CT scan without contrast showed no acute intracranial abnormality. Head and neck CTA showed no acute territorial infarction, hemorrhage, aneurysm or vascular malformation. The right posterior cerebral artery is not seen with some right-sided collateralization. ECG showed normal sinus rhythm to fl. hospital cours. He was admitted with weakness that appears to have improved, with no acute stroke evident on CT or MRI. There is a suspicion of myasthenia gravis, so we will begin the workup with acetylcholine receptor blocking, binding, and modulating antibody titers. He will follow up on outpatient basis with Neuroligist to review lab result final diagnosis: weakness Time Attestation Discharge Coordination Time (in mins): 35 Quality: Safe Use of Opioids Does Pt have an Active Cancer Diagnosis on the Problem List?: No Quality: Stroke Does the patient have a stroke diagnosis?: No Physical Exam Vital Signs: Vital Signs: Last Vital Signs Temp 98.2 F 04/11/24 06:22 Pulse 62 04/11/24 15:29 Resp 15 04/11/24 15:29 BP 120/73 04/11/24 15:29 Pulse Ox 98 04/11/24 15:29 O2 Del Method Room Air 04/11/24 09:45 BMI result Body Mass Index 28.5 DS: Data Data Completed and Pending Labs on day of discharge: Laboratory Results - last 24 hr 04/11/24 04/11/24 04/11/24 00:07 00:38 01:49 WBC 8.3 RBC 3.82 L Hgb 12.0 L Hct 34.5 L MCV 90.3 MCH 31.4 MCHC 34.8 RDW 13.2 Plt Count 189 MPV 8.8 L Immature Gran % (Auto) 0.5 H Neut % (Auto) 64.0 Lymph % (Auto) 23.1 Boundary % (Auto) 9.5 Eos % (Auto) 2.2 Baso % (Auto) 0.7 Lymph # (Auto) 1.9 Boundary # (Auto) 0.8 Eos # (Auto) 0.2 Baso # (Auto) 0.1 Abs Immat Gran (auto) 0.04 H Absolute Neuts (auto) 5.3 Absolute Nucleated RBC 0.000 Nucleated RBC % (auto) 0.0 PT 14.8 H INR 1.2 H APTT 32.3 VBG pH VBG pCO2 VBG pO2 VBG HCO3 VBG O2 Saturation VBG Base Excess Sodium 129 L Potassium 4.2 Chloride 93 L Carbon Dioxide 28 Anion Gap 12 BUN 13 Creatinine 1.09 Estim Creat Clear Calc 63.9 Estimated GFR > 60 POC Glucose 84 Random Glucose 86 Calcium 8.9 Phosphorus 3.7 Magnesium 2.1 Total Creatine Kinase 102 Troponin I High Sens < 2.7 TSH 1.00 Urine Color Yellow Urine Appearance Clear Urine pH 7.0 Ur Specific [employer] 1.015 Urine Protein Negative Urine Glucose (UA) Negative Urine Ketones Negative Urine Blood Negative Urine Nitrite Negative Ur Leukocyte Esterase Trace H Urine RBC 0-2 Urine WBC 0-5 Ur Squamous Epith Cells 0-2 Urine Bacteria None Seen Hyaline Casts 0-2 Urine Opiates Screen Ur Buprenorphine Scrn Ur Oxycodone Screen Urine Methadone Screen Urine Fentanyl Screen Ur Barbiturates Screen Ur Phencyclidine Scrn Ur Amphetamines Screen U Benzodiazepines Scrn Urine Cocaine Screen U Marijuana (THC) Screen Ethyl Alcohol < 10 04/11/24 04/11/24 04/11/24 02:45 03:44 05:45 WBC 9.0 RBC 3.81 L Hgb 12.0 L Hct 34.6 L MCV 90.8 MCH 31.5 MCHC 34.7 RDW 13.0 Plt Count 205 MPV 9.7 Immature Gran % (Auto) Neut % (Auto) Lymph % (Auto) Bound[place] % (Auto) Eos % (Auto) Baso % (Auto) Lymph # (Auto) Boundary # (Auto) Eos # (Auto) Baso # (Auto) Abs Immat Gran (auto) Absolute Neuts (auto) Absolute Nucleated RBC 0.000 Nucleated RBC % (auto) 0.0 PT INR APTT VBG pH 7.36 VBG pCO2 50 VBG pO2 58 VBG HCO3 29 H VBG O2 Saturation 88.0 VBG Base Excess 3.0 Sodium 134 L Potassium 4.3 Chloride 97 Carbon Dioxide 28 Anion Gap 13 BUN 12 Creatinine 0.93 Estim Creat Clear Calc 74.9 Estimated GFR > 60 POC Glucose Random Glucose 86 Calcium 9.3 Phosphorus Magnesium Total Creatine Kinase Troponin I High Sens TSH Urine Color Urine Appearance Urine pH Ur Specific [employer] Urine Protein Urine Glucose (UA) Urine Ketones Urine Blood Urine Nitrite Ur Leukocyte Esterase Urine RBC Urine WBC Ur Squamous Epith Cells Urine Bacteria Hyaline Casts Urine Opiates Screen Not Detected Ur Buprenorphine Scrn Not Detected Ur Oxycodone Screen Not Detected Urine Methadone Screen Not Detected Urine Fentanyl Screen Not Detected Ur Barbiturates Screen Not Detected Ur Phencyclidine Scrn Not Detected Ur Amphetamines Screen Not Detected U Benzodiazepines Scrn Not Detected Urine Cocaine Screen Not Detected U Marijuana (THC) Screen POSITIVE H Ethyl Alcohol Discharge Plan Discharge Anticipated Discharge Date/Time: 04/11/24 16:14 Patient Disposition: Home, Self-Care Discharge Diagnosis: Acute slur speech Referrals: Physician,Unknown J [Physician] - 1 Week Discharge Medications: Continued amitriptyline 100 mg Tablet 100 mg PO BEDTIME cetirizine [Zyrtec] 10 mg Tablet 10 mg PO DAILY amlodipine 2.5 mg Tablet 2.5 mg PO DAILY pantoprazole 40 mg Tablet,Delayed Release (Dr/Ec) 40 mg PO QAM aripiprazole 10 mg Tablet 10 mg PO BEDTIME aripiprazole 2 mg Tablet 4 mg PO QAM Eliquis 2.5 mg Tablet 2.5 mg PO BID Camphor/Menthol/Salicylate 1 patch topical DAILY Menthol/ M Salicylate Cream cream topical BID PRN (Reason: Pain (Scale Score 1-3)) lisinopril 40 mg tablet 40 mg PO DAILY travoprost [Travatan Z] 0.004 % drops 1 drp ophthalmic-Right BEDTIME metoprolol succinate 50 mg tablet extended release 24 hr 50 mg PO DAILY tamsulosin 0.4 mg capsule 0.4 mg PO BEDTIME timolol maleate 0.5 % drops 1 drp ophthalmic (eye) QAM Rx Instructions: both eyes pravastatin 20 mg tablet 20 mg PO DAILY Discharge Orders: Discharge Order (Routine); Ordered 04/11/24 Ordered By: Pawan Morley Diet: Advance to usual diet Activity on Discharge: As tolerated Stand Alone Forms: Patient Portal Discharge page Print Language: [place]ill[place] Care Plan Goals: mysthenia gravis work up stroke prevention Health Concerns: Slur speech Plan of Treatment: continue taking all your medications as before follow up with your Doctor in a week Assessment: see above Discharge Date/Time: 04/11/24 17:30
--- NOTE | 2024-04-11 17:33 | MHC.SP.ADU ---
Referring provider: Richa Mckee Reason for Referral: stroke protocol Type of Treatment: 68253 Clinical Swallowing Evaluation Date of Plan of Treatment: 04/11/24 Onset of Symptoms/Illness: 04/10/24 Date Treatment Started: 04/11/24 Medical Diagnosis: Slurred speech Primary Speech Language Diagnosis: R13.10 Dysphagia History Pt presented to ED on 04/10 w/ ?stroke; sudden onset of slight change in speech , L facial droop, and L sided weakness. Head CT and Head/neck CT nagative for acute pathology. CXR notes atelectaic changes/scarring at lung bases. lungs otherwise clear. Pt hx notable for GERD. Medical History: GERD, DVT, HLD, glaucoma, depression, R inguinal hernia repair Respiratory Needs: Room Air Social History: Current Living Situation: UNK Assistive Devices in use: UNK Past Speech Language Therapy: UNK Other Therapies Seen in Current Calendar Year: UNK Swallowing History: Dysphagia Specific: Comments: Pt tolerated thin liquids and regular solids w/ AIRPORT CONTROL OPERATOR. Pt reports that he sometimes has difficulty swallowing, reports that sometimes dry foods get stuck. Pt reports that he eats slow, chews well, and puts sauce on food b/c of this. Pt provided some education on globus sensation and eating in regards to GERD. Pt reports hoarseness/weakness of voice is d/t getting over a cold. Pre-eval Risk for Aspiration: Pre-evaluation Dietary Consistencies: Regular Pre-eval Liquid Intake: Thin Pre-eval Medication Intake: Whole with Liquid Assessment Speech Production: Within Functional Limits Clinical Impression: Observations: Pt reports his speech has returned to normal. No concerns noted at time of AIRPORT CONTROL OPERATOR visit. Impressions and Recommendations Summary: All aspects of swallow and oral motor exam deemed WFL. Recommend regular solids and thin liquids w/ pills whole w liquid. Larger pills cut 1/2 per pt request. AIRPORT CONTROL OPERATOR to f/u 1-2x to monitor speech and toleration of diet. Recommendation for Speech Therapy: Inpatient Speech Therapy Frequency/Duration: 1-2 f/u Patient Education: Completed: Yes Patient/Caregiver Education: Described Results of Evaluation Patient expressed understanding of evaluation Patient agrees with goals and treatment plan Mattress Stuffer Clinican/Clinical Fellow: No Supervisory Statement: N/A Speech Language Pathologist: Shahnaz Lundy M.A., [facility]-[employer] CONTROL OPERATOR
[2024-04-22 15:29] LABS: Acetylcholine Recept. Blocking <15 (<15)
[2024-04-22 17:57] LABS: Acetylcholine Receptor Binding <0.30 nmol/L
[2024-05-06 17:09] LABS: Acetylcholine Recep Modulating <1
== END 2024-04-11 17:30 | disposition home or self-care (01) | DRG 57 ==
LOC: HO.ED 01:58 → HO.EDOVER 02:46
PROVIDERS: Admitting Provider Internal Medicine; Emergency Provider Emergency Medicine Emergency Medical Services; PCP Internal Medicine; Visit Provider Internal Medicine
DX: G70.00 Myasthenia gravis without (acute) exacerbation (principal); G93.40 Encephalopathy, unspecified; R47.81 Slurred speech; E78.5 Hyperlipidemia, unspecified; I10 Essential (primary) hypertension; G47.33 Obstructive sleep apnea (adult) (pediatric); H40.9 Unspecified glaucoma; Z86.718 Personal history of other venous thrombosis and embolism; Z79.01 Long term (current) use of anticoagulants; Z79.899 Other long term (current) drug therapy
CPT/HCPCS: 36415; 70450; 70496; 70498; 70551; 71045; 80048; 80307; 81001; 82550; 82803; 82947; 83735; 84100; 84443; 84484; 85025; 85027; 85610; 85730; 86041; 86042; 86043; 93005; 93306; 96360; 96361; 97161; 97165; 99285; Q9957; Q9967

== ENCOUNTER 2024-04-11 02:40 | Outpatient (BNV) | payer MEDICARE, BC, SELFPAY | END 2024-04-11 07:00 | PROVIDERS: Admitting Provider Internal Medicine; Emergency Provider Emergency Medicine Emergency Medical Services; Visit Provider Internal Medicine Cardiovascular Disease | DX: I49.2 Junctional premature depolarization (principal); R94.31 Abnormal electrocardiogram [ECG] [EKG]; R93.1 Abnormal findings on diagnostic imaging of heart and coronary circulation | CPT/HCPCS: 93010; 93306 ==

== ENCOUNTER → 2024-04-11 02:40 | Outpatient (BNV) | payer MEDICARE, BC, SELFPAY | PROVIDERS: Admitting Provider Internal Medicine; Emergency Provider Emergency Medicine Emergency Medical Services; Visit Provider Internal Medicine | DX: R47.81 Slurred speech (principal); R53.1 Weakness | CPT/HCPCS: 99235; 99499 ==

== ENCOUNTER → 2024-04-11 02:40 | Outpatient (BNV) | payer MEDICARE, BC, SELFPAY | PROVIDERS: Admitting Provider Internal Medicine; Emergency Provider Emergency Medicine Emergency Medical Services; Visit Provider Psychiatry & Neurology Neurology | DX: R47.81 Slurred speech (principal); R53.1 Weakness | CPT/HCPCS: 99222 ==